=== PATIENT | male | born 1945 | race Caucasian/White ===

== ENCOUNTER 2020-12-06 08:40 | Outpatient (REF) | payer MEDICARE, SELFPAY ==
--- NOTE | ~2020-12-06 | XR_ITS ---
EXAMINATION: XR CHEST CLINICAL INFORMATION: COPD COMPARISON: Chest x-ray 01/08/2020 TECHNIQUE: 2 views of the chest were obtained. FINDINGS: The lungs are hyperinflated and clear of acute process. Heart size and pulmonary vascularity is normal. No gross bony abnormality seen. XR/XR chest 2V IMPRESSION: Hyperinflated lungs without acute process.
[2020-12-06 10:40] LABS: MANUAL DIFF FLAG NO
[2020-12-06 10:52] LABS: Basophils Absolute Auto 0.1 X10*3/uL (0.0-0.2); Basophils Percent Auto 0.8 % (0-2); Eosinophils Absolute Auto 0.3 X10*3/uL (0.0-0.4); Eosinophils Percent Auto 4.8 % (0-4); Hemoglobin 13.5 g/dl (14.0-18.0); Imm Gran Abs Auto 0.01 X10*3/uL (0.00-0.03); Imm Gran Pct Auto 0.2 % (0.0-0.4); Lymphocytes Absolute Auto 1.3 X10*3/uL (1.2-4.9); Lymphocytes Percent Auto 21.5 % (20-40); Mean Corpuscular HGB Conc 33.8 g/dl (31.0-36.0); Mean Corpuscular Hemoglobin 29.7 pg (27.0-33.0); Mean Corpuscular Volume 87.9 fL (80-98); Mean Platelet Volume 10.8 fL (9.4-12.4); Monocytes Absolute Auto 0.7 X10*3/uL (0.1-1.2); Neutrophils Absolute Auto 3.7 X10*3/uL (2.0-8.3); Neutrophils Percent Auto 60.7 % (45-73); Platelet Count 209 X10*3/uL (160-400); Red Blood Count 4.55 X10*6/uL (4.60-5.80); Red Cell Distribution Width 13.2 % (11.0-16.0); White Blood Count 6.1 X10*3/uL (4.8-10.8)
[2020-12-06 11:15] LABS: Alanine Aminotransferase 39 U/L (0-40); Albumin Level 3.8 g/dL (3.5-5.0); Alkaline Phosphatase 82 U/L (39-117); Anion Gap 11 (12-20); Aspartate Amino Transferase 42 U/L (5-37); Bilirubin Direct 0.5 mg/dL (0.0-0.5); Bilirubin Total 1.1 mg/dL (0.0-1.0); Blood Urea Nitrogen 12 mg/dL (9-16); Calcium 9.1 mg/dL (8.4-10.2); Carbon Dioxide 27 mmol/L (22-29); Chloride 102 mmol/L (96-108); Estimated Glomerular Filt Rate > 60; Glucose Random 100 mg/dL (60-115); Potassium 4.3 mmol/L (3.3-5.1); Sodium 136 mmol/L (135-145); Total Protein 6.4 g/dL (6.5-8.0)
[2020-12-06 12:04] LABS: Erythrocyte Sedimentation Rate 9 MM/HR (0-15)
[2020-12-09 21:47] LABS: Alpha 1 Anti-trypsin 110 mg/dL (83-199)
== END 2020-12-06 08:41 | disposition home or self-care (01) ==
LOC: HO.LAB 08:40
PROVIDERS: PCP Internal Medicine; Visit Provider Hospitalist
DX: J44.9 Chronic obstructive pulmonary disease, unspecified (principal); E88.01 Alpha-1-antitrypsin deficiency; Z79.899 Other long term (current) drug therapy
CPT/HCPCS: 36415; 71046; 80048; 80076; 82103; 85025; 85652; 99212

== ENCOUNTER 2021-12-29 13:24 | Outpatient (REF) | payer MEDICARE, SELFPAY ==
--- NOTE | ~2021-12-29 | XR_ITS ---
EXAMINATION: XR CHEST CLINICAL INFORMATION: Centrilobular emphysema COMPARISON: Chest 12/06/2020 TECHNIQUE: 2 views of the chest were obtained. FINDINGS: The lungs are hyperinflated without acute pneumonic process. The heart size and pulmonary vascularity is normal. No gross bony abnormality seen. XR/XR chest 2V IMPRESSION: Unremarkable chest examination. No change from 12/06/2020
[2021-12-29 13:33] LABS: MANUAL DIFF FLAG NO
[2021-12-29 13:40] LABS: Basophils Absolute Auto 0.1 X10*3/uL (0.0-0.2); Basophils Percent Auto 1.1 % (0-2); Eosinophils Absolute Auto 0.4 X10*3/uL (0.0-0.4); Eosinophils Percent Auto 6.2 % (0-4); Hematocrit 40.9 % (42.0-52.0); Hemoglobin 14.1 g/dl (14.0-18.0); Imm Gran Abs Auto 0.02 X10*3/uL (0.00-0.03); Imm Gran Pct Auto 0.3 % (0.0-0.4); Lymphocytes Absolute Auto 1.3 X10*3/uL (1.2-4.9); Lymphocytes Percent Auto 18.6 % (20-40); Mean Corpuscular HGB Conc 34.5 g/dl (31.0-36.0); Mean Corpuscular Hemoglobin 30.1 pg (27.0-33.0); Mean Corpuscular Volume 87.4 fL (80.0-98.0); Mean Platelet Volume 10.2 fL (9.4-12.4); Monocytes Absolute Auto 0.7 X10*3/uL (0.1-1.2); Monocytes Percent Auto 9.3 % (2-11); Neutrophils Absolute Auto 4.6 x10*3/uL (2.0-8.3); Neutrophils Percent Auto 64.5 % (45-73); Platelet Count 212 X10*3/uL (160-400); Red Blood Count 4.68 X10*6/uL (4.60-5.80); Red Cell Distribution Width 13.4 % (11.0-16.0); White Blood Count 7.1 X10*3/uL (4.8-10.8)
[2021-12-29 14:13] LABS: Alanine Aminotransferase 33 U/L (0-40); Albumin Level 4.2 g/dL (3.5-5.0); Alkaline Phosphatase 69 U/L (39-117); Aspartate Amino Transferase 30 U/L (5-37); Bilirubin Direct 0.3 mg/dL (0.0-0.5); Bilirubin Total 1.1 mg/dL (0.0-1.0); Total Protein 6.9 g/dL (6.5-8.0)
[2021-12-29 14:19] LABS: Erythrocyte Sedimentation Rate 12 MM/HR (0-15)
[2022-01-01 14:32] LABS: Alpha 1 Anti-trypsin 98 mg/dL (83-199)
== END 2021-12-29 13:25 | disposition home or self-care (01) ==
LOC: HO.LAB 13:24
PROVIDERS: PCP Internal Medicine; Visit Provider Hospitalist
DX: E88.01 Alpha-1-antitrypsin deficiency (principal); J43.2 Centrilobular emphysema
CPT/HCPCS: 36415; 71046; 80076; 82103; 85025; 85652; 99212

== ENCOUNTER 2022-12-17 07:42 | Outpatient (REF) | payer MEDICARE, SELFPAY ==
--- NOTE | 2022-12-17 09:15 | PFT_ITS ---
INDICATION: COPD. SPIROMETRY: FEV1 to FVC 52% with an FEV1 of 1.79 L, which is 58% predicted and FVC of 3.45 L, which is 91% predicted. No significant response to bronchodilators noted. Maximum voluntary ventilation 57% predicted. LUNG VOLUMES: Total lung capacity 89% predicted. DIFFUSION CAPACITY: DLCO of 64% predicted. COMPARISON: None available at this time. INTERPRETATION: There is an obstructive ventilatory defect consistent with tqsufcjf-ng-tnreyl COPD. No significant response to bronchodilators noted. There is a moderate decrease in maximum voluntary ventilation secondary to the acute deconditioning. Lung volumes are within normal limits. The patient does have a mild diffusion impairment. Clinical correlation warranted. Wolfgang Ann MD MR/MODL / [id number]
== END 2022-12-17 07:43 | disposition home or self-care (01) ==
LOC: HO.RESP 07:42
PROVIDERS: PCP Internal Medicine; Visit Provider Hospitalist
DX: J43.2 Centrilobular emphysema (principal)
CPT/HCPCS: 94060; 94727; 94729

== ENCOUNTER → 2022-12-17 09:15 | Outpatient (BNV) | payer MEDICARE, SELFPAY | PROVIDERS: PCP Internal Medicine; Visit Provider Hospitalist | DX: J44.9 Chronic obstructive pulmonary disease, unspecified (principal) | CPT/HCPCS: 94060; 94727; 94729 ==

== ENCOUNTER 2023-01-16 08:07 | Outpatient (AMB) | payer MEDICARE, SELFPAY ==
--- NOTE | 2023-01-16 08:52 | MHC.OFFVIS ---
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 Overall he has been doing well until recently when he started developing respiratory complaints. After [place] he was exposed to sick contacts and then subsequent started developing stuffiness of the sinuses and chest congestion. She also having a sore throat. He has been having hard time with the breathing and chest tightness. He has been using his nebulizer up to 3 times a day. He has been trying to use olmz-njh-ewakjqf medications with minimal effect. Prior to that he was exercising and doing well. He continues using the Advair and rarely had you to use the short-acting beta agonist. He has plan to leave to [place] in the coming weeks. 01/08/2020 the patient is here for pulmonary follow-up visit. He just got back from [place]. While he was in [place] he did have significant back pain in he ultimately underwent a laminectomy. He is recovering well he is using a cane. His respiratory status has been relatively stable. He does get shortness of breath with activity. Mild in severity. Denies any significant coughing. Denies any exposure to anybody with COVID-19 infection. Today will have him do a spirometry and also check additional blood work to address his alpha-1 deficiency. He should also undergo a chest x-ray. Also to know he did have a sibling that was diagnosed with pulmonary nodules has been evaluated at this time. 12/01/2020 the patient is here for pulmonary follow-up visit. The patient overall has been doing well from a respiratory status. He continues to use the Advair twice a day. He is wondering if he needs to take this medication for ever. He is concerned about the potential adverse effects of taking did chronic medication. I did reassure him that the amount of medication that he is taking minimal. However, he could decrease the dose to 1 inhalation daily. I did provide him with a peak flow that he can monitor his capacity as he decrease this to once a day. He had been using the azithromycin 3 times a week specially during the winter months when he gets more congested. However, recently was diagnosed with colitis in currently taking probiotics. I did recommend that he stop the Zithromax in altogether. In the meantime the patient and his had to come earlier to [place] from [place] due to the fact his granddaughter in a car accident. So they are going through a lot of difficulties with the loss of her family member. Today he will undergo blood work in addition to chest x-ray. 12/29/2021 the patient is here for a pulmonary follow-up visit. Overall he is doing well. he is currently on his baseline. He continues with the Advair as prescribed. He has not required his rescue medication. He is trying to stay active and exercise. We did review his blood work from last year with a normal alpha-1 level. Chest x-ray also appeared to be normal except for some hyperinflation. The patient will go ahead and have additional blood work in a chest x-ray. To note during the last blood work his liver function studies were a little elevated. He was diagnosed with fatty liver. Based on the fact the alpha-1 levels have been well within the normal ranges I doubt that the abnormal liver studies have to do with the alpha-1 antitrypsin Abnormality. 01/16/2023 The patient is here for a pulmonary follow up visit. Does have dyspnea on exertion. Moderate in severity. Has a hard time to be in the humidity. Has been also having allergy symptoms with elevated eosinophils. Partially responds to Advair. He had PFTs with moderate to severe COPD and a moderate diffusion capacity. Planning a trip to [place] around 8,000 feet above see level. We will optimize his respiratory inhaler to Trelegy 100. He will undergo a CXR today. His alpha 1 levels had been stable before, therefore, we will defer this time. [facility] Medical History (Updated 12/06/20 @ 12:47 by Wolfgang Ann MD) Gurne-1-licggchdrrb deficiency Colitis COPD (chronic obstructive pulmonary disease) Social History (Updated 12/06/20 @ 09:02 by KOMAL Odom) Patient Tobacco Use Status: Former Tobacco user Tobacco use type: Cigarette Years Smoked: 19 years Review of Systems Const Denies night sweats ENT Denies change in voice, Denies lip swelling, Denies mouth pain, Reports nasal congestion, Reports nasal discharge and Denies tongue swelling Card Denies chest pain and Reports dyspnea on exertion Resp Reports cough, Reports dyspnea on exertion and Reports wheezing GI Denies abdominal pain Musc Denies no additional complaints Neuro Denies Neuro-related abnormal movements Psych Denies no additional complaints Sagar/Lymph Denies easy bleeding and Denies lymphadenopathy Aller/Immun Denies lip swelling, Denies tongue swelling and Reports wheezing Physical Exam Vital Signs: Last Vital Signs Pulse 61 01/16/23 08:53 BP 138/70 01/16/23 08:53 Pulse Ox 96 01/16/23 08:53 Oxygen Delivery Method Room Air 01/16/23 08:53 BMI result Body Mass Index 24.4 Const General: alert Neck Neck: Yes normal visual inspection, Yes full ROM and Yes no lymphadenopathy Chest Chest palpation & inspection: normal inspection of the chest Resp Auscultation: wheezes and diminished lung sounds Cardio Rate: regular rate Rhythm: regular rhythm Heart sounds: S1 normal heart sound present and S2 normal heart sound present GI Palpation (GI): Soft to palpation and nontender Auscultation: normal bowel sounds Skin General skin exam: rashes and/or lesions noted Assessment & Plan Assessment & Plan (1) Joaol-9-ygtqxlounrx deficiency: Code(s): E88.01 - Ydtob-0-oyfvrcynnlo deficiency (2) COPD (chronic obstructive pulmonary disease): Code(s): J44.9 - Chronic obstructive pulmonary disease, unspecified Qualifiers: COPD type: emphysema Emphysema type: centrilobular Qualified Code(s): J43.2 - Centrilobular emphysema Plan chest x-ray stop Advair strat Trelegy MARIAM as needed F/U 1 year Orders: Orders XR chest 2V Today E88.01 - Jhqck-8-yuwuydqcuqj deficiency, J44.9 - Chronic obstructive pulmonary disease, unspecified Medications: New yvqljynicsl-pyppyigsn-ctbdoima 100-62.5-25 mcg (Trelegy Ellipta) 1 inh inhalation DAILY 30 days 60 ea 11RF J44.9 - Chronic obstructive pulmonary disease, unspecified Coding Level of Care Code Est Pt Level 4 (23238) Diagnoses Zujnu-7-muevcgqxfno deficiency E88.01 COPD (chronic obstructive pulmonary disease) J43.2 COPD type: emphysema Emphysema type: centrilobular Time Spent (min) 19
[2023-01-16 08:53] VITALS: BP 138/70; PULSE 61; O2SAT 96; BMI 24.4
== END 2023-01-16 09:29 | disposition home or self-care (01) ==
PROVIDERS: PCP Internal Medicine; Visit Provider Hospitalist
DX: E88.01 Alpha-1-antitrypsin deficiency (principal); J43.2 Centrilobular emphysema
CPT/HCPCS: 99214

== ENCOUNTER 2023-01-16 08:07 | Outpatient (REF) | payer MEDICARE, SELFPAY ==
--- NOTE | ~2023-01-16 | XR_ITS ---
EXAMINATION: XR CHEST CLINICAL INFORMATION: COPD COMPARISON: None available. TECHNIQUE: 2 views of the chest were obtained. FINDINGS: The lungs are hyperinflated but clear. The heart size and pulmonary vascularity is normal. No gross bony abnormality seen. XR/XR chest 2V IMPRESSION: Unremarkable chest examination.
== END 2023-01-16 08:08 | disposition home or self-care (01) ==
LOC: HO.XRAY 08:07
PROVIDERS: PCP Internal Medicine; Visit Provider Hospitalist
DX: J43.2 Centrilobular emphysema (principal); E88.01 Alpha-1-antitrypsin deficiency; Z87.891 Personal history of nicotine dependence
CPT/HCPCS: 71046; 99212

== ENCOUNTER 2024-01-27 09:06 | Outpatient (REF) | payer MEDICARE, SELFPAY ==
--- NOTE | ~2024-01-27 | XR_ITS ---
EXAMINATION: XR CHEST CLINICAL INFORMATION: Cough. COMPARISON: Chest radiograph 01/16/2023. TECHNIQUE: 2 views of the chest were obtained. FINDINGS: No focal consolidation, pleural effusion or pneumothorax. Slightly increased interstitial markings, not significantly changed. Normal appearance of the cardiomediastinal silhouette. No acute osseous findings. XR/XR chest 2V IMPRESSION: Chronic minimally increased interstitial markings, indeterminate. Further characterization could be obtained with a high-resolution chest CT as clinically appropriate if an interstitial lung abnormality is clinically suspected. No dense consolidation or pleural effusion. Electronically signed by: Dang Dueñas MD 02/20/2024 12:08 PM EDT
== END 2024-01-27 09:07 | disposition home or self-care (01) ==
LOC: HO.XRAY 09:06
PROVIDERS: PCP Internal Medicine; Visit Provider Hospitalist
DX: R05.3 Chronic cough (principal); E88.01 Alpha-1-antitrypsin deficiency; J43.2 Centrilobular emphysema; J40 Bronchitis, not specified as acute or chronic
CPT/HCPCS: 71046; 99212

== ENCOUNTER 2024-01-27 09:06 | Outpatient (AMB) | payer MEDICARE, SELFPAY ==
[2024-01-27 09:16] VITALS: BP 128/70; PULSE 75; O2SAT 97; BMI 24.0
--- NOTE | 2024-01-27 09:16 | A.OFFVIS_ITS ---
Vital Signs 01/27/24 09:16 Height 5 ft 11 in Weight 172 lb BMI 24.0 BP 128/70 Blood Pressure Location Lt brachial Position Sitting Pulse 75 Pulse Source Pulse Oximeter Pulse Oximetry (%) 97 Oxygen Delivery Method Room Air Intake Visit Reasons: COPD follow-up Allergies No Known Allergies Allergy (Verified 01/27/24 09:18) HPI Comments Details: The patient is a 78-year-old gentleman with a known history of alpha-1 antitrypsin deficiency, COPD. Overall he has been doing well until recently when he started developing respiratory complaints. After [place] he was exposed to sick contacts and then subsequent started developing stuffiness of the sinuses and chest congestion. She also having a sore throat. He has been having hard time with the breathing and chest tightness. He has been using his nebulizer up to 3 times a day. He has been trying to use cank-ouu-bhrhoue medications with minimal effect. Prior to that he was exercising and doing well. He continues using the Advair and rarely had you to use the short-acting beta agonist. He has plan to leave to [place] in the coming weeks. 01/16/2023 The patient is here for a pulmonary follow up visit. Does have dyspnea on exertion. Moderate in severity. Has a hard time to be in the humidity. Has been also having allergy symptoms with elevated eosinophils. Partially responds to Advair. He had PFTs with moderate to severe COPD and a moderate diffusion capacity. Planning a trip to [place] around 8,000 feet above see level. We will optimize his respiratory inhaler to Trelegy 100. He will undergo a CXR today. His alpha 1 levels had been stable before, therefore, we will defer this time. 01/27/2024 the patient is here for a pulmonary follow-up visit. He continues to have dyspnea on exertion ptmv-hk-psdunwls severity. He does have issues with humidity. He also has elevations in the eosinophils likely component of allergies specially when he transitions from [place] to [place]. He has been on the Advair. We had requested that he can try some Trelegy instead which may be helpful in decreasing some of the congestion and dyspnea symptoms. Will go ahead and send a prescription to the pharmacy. In the meantime he did have a chest x-ray during the last visit with straightening no acute disease. Lately he developed a cough after visiting [place]. He has been having some increased chest congestion greenish in color. Colb-qi-gygvynhc severity. Initially was getting a little better with the now she is persistent. He is on somewhat congested on the right lung with some rhonchi although I do not hear any crackles. Will be reasonable to give a course of doxycycline to treat him for a postviral bacterial infection. Specially with his underlying COPD. No need for prednisone right now. He will have a chest x-ray prior to leaving. If the x- ray demonstrates any abnormalities I will let him know. [facility] Medical History (Updated 01/27/24 @ 19:53 by Wolfgang Ann MD) Cough Colitis COPD (chronic obstructive pulmonary disease) Trpak-6-dnflqmxwewg deficiency Social History (Updated 12/06/20 @ 09:02 by KOMAL Odom) Patient Tobacco Use Status: Former Tobacco user Tobacco use type: Cigarette Years Smoked: 19 years Review of Systems Const Denies night sweats ENT Denies change in voice, Denies lip swelling, Denies mouth pain, Reports nasal congestion, Reports nasal discharge and Denies tongue swelling Card Denies chest pain and Reports dyspnea on exertion Resp Reports cough, Reports dyspnea on exertion and Reports wheezing GI Denies abdominal pain Musc Denies no additional complaints Neuro Denies Neuro-related abnormal movements Psych Denies no additional complaints Sagar/Lymph Denies easy bleeding and Denies lymphadenopathy Aller/Immun Denies lip swelling, Denies tongue swelling and Reports wheezing Physical Exam Vital Signs: Last Vital Signs Pulse 75 01/27/24 09:16 BP 128/70 01/27/24 09:16 Pulse Ox 97 01/27/24 09:16 Oxygen Delivery Method Room Air 01/27/24 09:16 BMI result Body Mass Index 24.0 Const General: alert Neck Neck: Yes normal visual inspection, Yes full ROM and Yes no lymphadenopathy Chest Chest palpation & inspection: normal inspection of the chest Resp Auscultation: no wheezes and diminished lung sounds Cardio Rate: regular rate Rhythm: regular rhythm Heart sounds: S1 normal heart sound present and S2 normal heart sound present GI Palpation (GI): Soft to palpation and nontender Auscultation: normal bowel sounds Skin General skin exam: rashes and/or lesions noted Assessment & Plan Assessment & Plan (1) Ayutb-9-vcnbavttkza deficiency: Code(s): E88.01 - Onsbd-8-zahnkjxrayz deficiency Category: Medical (2) COPD (chronic obstructive pulmonary disease): Code(s): J44.9 - Chronic obstructive pulmonary disease, unspecified Category: Medical Qualifiers: COPD type: emphysema Emphysema type: centrilobular Qualified Code(s): J43.2 - Centrilobular emphysema (3) Cough: Code(s): R05.9 - Cough, unspecified Category: Medical Qualifiers: Cough type: chronic Qualified Code(s): R05.3 - Chronic cough (4) Bronchitis: Code(s): J40 - Bronchitis, not specified as acute or chronic Category: Medical Plan chest x-ray stop Advair strat Trelegy MARIAM as needed start Doxycycline F/U 1 year Orders: Orders XR chest 2V Today R05.9 - Cough, unspecified Medications: New doxycycline monohydrate 100 mg PO BID 28 tabs 0RF 14 days hkvhvfuhtdb-kifjbyvqy-qncsbxcu 200-62.5-25 mcg (Trelegy Ellipta) 1 inh inhalation DAILY 60 ea 12RF 30 days Coding Level of Care Code Est Pt Level 4 (65199) Diagnoses Fgkzy-0-lzckfjcuudx deficiency E88.01 Centrilobular emphysema J43.2 COPD type: emphysema Emphysema type: centrilobular Chronic cough R05.3 Cough type: chronic Bronchitis J40 Time Spent (min) 17
== END 2024-01-27 09:39 | disposition home or self-care (01) ==
PROVIDERS: PCP Internal Medicine; Visit Provider Hospitalist
DX: E88.01 Alpha-1-antitrypsin deficiency (principal); J43.2 Centrilobular emphysema; R05.3 Chronic cough; J40 Bronchitis, not specified as acute or chronic
CPT/HCPCS: 99214

== ENCOUNTER 2025-01-11 08:36 | Outpatient (AMB) | payer MEDICARE, SELFPAY ==
[2025-01-11 08:48] VITALS: BP 128/58; PULSE 82; O2SAT 98; BMI 22.3
--- NOTE | 2025-01-11 08:48 | MHC.OFFVIS ---
Vital Signs 01/11/25 08:48 Height 5 ft 11 in Weight 160 lb BMI 22.3 BP 128/58 L Blood Pressure Location Lt brachial Position Sitting Pulse 82 Pulse Source Pulse Oximeter Pulse Oximetry (%) 98 Oxygen Delivery Method Room Air Intake Visit Reasons: copd Allergies No Known Allergies Allergy (Verified 01/11/25 08:54) HPI Comments Details: The patient is a 79-year-old gentleman with a known history of alpha-1 antitrypsin deficiency, COPD. Overall he has been doing well until recently when he started developing respiratory complaints. After [place] he was exposed to sick contacts and then subsequent started developing stuffiness of the sinuses and chest congestion. She also having a sore throat. He has been having hard time with the breathing and chest tightness. He has been using his nebulizer up to 3 times a day. He has been trying to use ocor-gwk-nficunq medications with minimal effect. Prior to that he was exercising and doing well. He continues using the Advair and rarely had you to use the short-acting beta agonist. He has plan to leave to [place] in the coming weeks. 01/16/2023 The patient is here for a pulmonary follow up visit. Does have dyspnea on exertion. Moderate in severity. Has a hard time to be in the humidity. Has been also having allergy symptoms with elevated eosinophils. Partially responds to Advair. He had PFTs with moderate to severe COPD and a moderate diffusion capacity. Planning a trip to [place] around 8,000 feet above see level. We will optimize his respiratory inhaler to Trelegy 100. He will undergo a CXR today. His alpha 1 levels had been stable before, therefore, we will defer this time. 01/27/2024 the patient is here for a pulmonary follow-up visit. He continues to have dyspnea on exertion dgiv-qv-bigmcbqv severity. He does have issues with humidity. He also has elevations in the eosinophils likely component of allergies specially when he transitions from [place] to [place]. He has been on the Advair. We had requested that he can try some Trelegy instead which may be helpful in decreasing some of the congestion and dyspnea symptoms. Will go ahead and send a prescription to the pharmacy. In the meantime he did have a chest x-ray during the last visit with straightening no acute disease. Lately he developed a cough after visiting [place]. He has been having some increased chest congestion greenish in color. Pnkt-al-jhawivla severity. Initially was getting a little better with the now she is persistent. He is on somewhat congested on the right lung with some rhonchi although I do not hear any crackles. Will be reasonable to give a course of doxycycline to treat him for a postviral bacterial infection. Specially with his underlying COPD. No need for prednisone right now. He will have a chest x-ray prior to leaving. If the x-ray demonstrates any abnormalities I will let him know. 01/11/2025 the patient is here for pulmonary follow-up visit. Overall he is doing okay. 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 He had a stent placed and ultimately had postoperative complications with low blood pressures and needing ICU level of care. The patient did have a heart attack. He has cares mainly right now in [place]. He is going back in a month and he is going to see the surgeon and hopefully also Cardiology. Prior to having the stent placement he did have a preoperative evaluation including a stress test. I do not have any other results. He has lost some weight and he has also has decreased appetite will likely sequela from being ill. But he needs to make sure to have imaging studies and make sure that he has any recent x-rays or CAT scans done in [place]. I will hold off on doing any workup right now since he is going back to [place] in a few weeks and be seen his doctors then. From a alpha-1 standpoint his levels have been stable and I did reassure him this is not an issue for him to worry about. He does not need augmentation therapy. He continues use the Trelegy with good effect. He does get muscle spasms. Although he needs to stay hydrated and watch her his electrolytes. He will follow-up in a year's time if he has any issues prior to this he will call for further recommendations. [facility] Medical History (Updated 01/27/24 @ 19:53 by Wolfgang Ann MD) Cough Colitis COPD (chronic obstructive pulmonary disease) Kfztn-9-bhezsvmgrgk deficiency Social History (Updated 12/06/20 @ 09:02 by KOMAL Odom) Patient Tobacco Use Status: Former Tobacco user Tobacco use type: Cigarette Years Smoked: 19 years Review of Systems Const Denies night sweats ENT Denies change in voice, Denies lip swelling, Denies mouth pain, Reports nasal congestion, Reports nasal discharge and Denies tongue swelling Card Reports as per HPI, Denies chest pain and Reports dyspnea on exertion Resp Reports cough, Reports dyspnea on exertion and Reports wheezing GI Denies abdominal pain Musc Denies no additional complaints Neuro Denies Neuro-related abnormal movements Psych Denies no additional complaints Sagar/Lymph Denies easy bleeding and Denies lymphadenopathy Aller/Immun Denies lip swelling, Denies tongue swelling and Reports wheezing Physical Exam Vital Signs: Last Vital Signs Pulse 82 01/11/25 08:48 BP 128/58 L 01/11/25 08:48 Pulse Ox 98 01/11/25 08:48 Oxygen Delivery Method Room Air 01/11/25 08:48 BMI result Body Mass Index 22.3 Const General: alert Neck Neck: Yes normal visual inspection, Yes full ROM and Yes no lymphadenopathy Chest Chest palpation & inspection: normal inspection of the chest Resp Auscultation: no wheezes and diminished lung sounds Cardio Rate: regular rate Rhythm: regular rhythm Heart sounds: S1 normal heart sound present and S2 normal heart sound present GI Palpation (GI): Soft to palpation and nontender Auscultation: normal bowel sounds Skin General skin exam: rashes and/or lesions noted Assessment & Plan Assessment & Plan (1) Vxzur-4-xubdmbgdehm deficiency: Code(s): E88.01 - Txtns-6-qbxanjjbwnt deficiency Category: Medical (2) COPD (chronic obstructive pulmonary disease): Code(s): J44.9 - Chronic obstructive pulmonary disease, unspecified Category: Medical Qualifiers: COPD type: emphysema Emphysema type: centrilobular Qualified Code(s): J43.2 - Centrilobular emphysema (3) Cough: Code(s): R05.9 - Cough, unspecified Category: Medical Qualifiers: Cough type: chronic Qualified Code(s): R05.3 - Chronic cough (4) Bronchitis: Code(s): J40 - Bronchitis, not specified as acute or chronic Category: Medical Plan chest x-ray continue Trelegy MARIAM as needed F/U 1 year Medications: Changed From albuterol sulfate 90 mcg/actuation 2 puffs inhalation Q6H PRN 3 ea 2RF for wheezing To albuterol sulfate 90 mcg/actuation 2 puffs inhalation Q6H PRN 1 ea 3RF for wheezing 90 days Refilled oidkndwlncg-esxcxfhvl-uxxagqal 200-62.5-25 mcg (Trelegy Ellipta) 1 inh inhalation DAILY 3 ea 3RF 90 days Coding Level of Care Code Est Pt Level 4 (95970) Diagnoses Ftalq-2-rmalppbguwf deficiency E88.01 Centrilobular emphysema J43.2 COPD type: emphysema Emphysema type: centrilobular Chronic cough R05.3 Cough type: chronic Bronchitis J40 Time Spent (min) 16
--- OUTSIDE RECORDS SUMMARY | 2025-01-11 08:58 | XMS_ITS | Clinical Summary ---
Author Organization [facility] ity Address [address] [place] [address] Care Team Providers Care Rn Ed Name Role Phone Kingsley Hoff MD Primary Care Provider [phone] Medications mesalamine (APRISO) 0.375 gram 24 hr capsuleIndicati ons:Ulcerative colitis ([facility] [place]24, [facility] [place] V28) Take 4 capsules (1.5 g total) by mouth 1 (one) time each day. 120 capsule 3 11/13/2024 Active Surgical History Surgery Date Site/Laterality Comments TOTAL KNEE ARTHROPLASTY 06/2011 Right PROCEDURE: HISTORICAL TOTAL KNEE REPLACE OTHER SURGICAL HISTORY 10/2015 PROCEDURE: HISTORY OTHER; COMMENT: Hernia (DIMAS) repair KNEE SURGERY 1974 PROCEDURE: HISTORICAL KNEE SURGERY OTHER SURGICAL HISTORY 1965 PROCEDURE: HISTORY OTHER; COMMENT: tailbone cyst removed JOINT REPLACEMENT PROCEDURE:JOINT REPLACEMENT BACK SURGERY PROCEDURE:BACK SURGERY HERNIA REPAIR PROCEDURE:HERNIA REPAIR SHOULDER SURGERY PROCEDURE:SHOULDER SURGERY Medical History Medical History Date Comments Chronic obstructive pulmonar y disease (COPD) ([facility] [place] V24, [facility] [place] V28) 12/03/2017 DX:Chronic obstructi ve pulmonary disease (COPD) ([facility]) Allergic rhinitis 12/10/2016 DX:Allergic rh initis Efort-3-kmykljccrpr deficien cy ([facility] [place] V24, [facility] [place] V28) 11/02/2016 DX:Hdchj-7-kbjkvzxnkdm defic iency ([facility]) Asthma 04/08/2017 DX:Asthma Bronchiectasis ([facility] [place] V24, [facility] [place] V28) 11/02/2016 DX:Bronchiectasis ([facility]) History of total knee replacement 04/14/2017 DX:History of total knee replacement Asthma DX:Asthma Diabetes mellitus ([facility] V 24, [facility] V28) DX:Diabetes mellitus ([facility]) Psoriasis DX:Psoriasis Family History Medical History Relation Name Comments Emphysema Father Emphysema Mother Relation Name Status Comments Father Mother Social History Tobacco Use Types Packs/Day Years Used Date Smoking Tobacco: Never Assessed Cigarettes Sex and Gender Information Value Date Recorded Sex Assigned at Not on file Legal Sex Male 3:16 AM EST Gender Identity Not on file Sexual Orientation Not on file Obstetrics History Last Filed Vital Signs Vital Sign Reading Time Taken Comments Blood Pressure - - Pulse - - Temperature - - Respiratory Rate - - Oxygen Saturation - - Inhaled Oxygen Concentration - - Weight 82.1 kg (181 lb) 11/14/2021 1:09 PM EDT Height 180.3 cm (5' 11 ) 11/14/2021 1:09 PM EDT Body Mass Index 25.24 11/14/2021 1:09 PM EDT Plan of Treatment Upcoming Encounters Date Type Department Care Team (Late st Contact Info) Description 01/20/2025 10:10 AM EDT Office Visit Gastroenterology - [address] [place] [id number] Jonna Gary PA [address] [place] [address] Health Maintenance Due Date Last Done Comments DTaP,Tdap,and Td Vaccines (1 - Tdap) 1964 Hepatitis A Vaccines (1 of 2 - Risk 2-dose series) 1963 Pneumococcal Vaccine: 50+ Ye ars (1 of 2 - PCV) 1963 Zoster Vaccines (1 of 2) 1994 Hepatitis B Vaccines (1 of 3 - Risk 3-dose series) 2004 RSV Immunization Adult Patie nts (1 - 1-dose 75+ series) 2019 Cholesterol Screening (Lipid Panel) 05/13/2022 Falls Risk Assessment 05/13/2022 Medicare Annual Wellness Visit 05/13/2022 Social Influencers of Health Screening 05/13/2022 COVID-19 Vaccine ( - 2023-2 5 season) 2024 Depression Screening 06/10/2024 Influenza Vaccine (#1) 2025 HIB Vaccines Aged Out No longer eligi ble based on patient's age to complete this topic HPV Vaccines Aged Out No longer eligi ble based on patient's age to complete this topic IPV Vaccines Aged Out No longer eligi ble based on patient's age to complete this topic MMR Vaccines Aged Out No longer eligi ble based on patient's age to complete this topic Meningococcal ACWY Vaccine Aged Out N o longer eligible based on patient's age to complete this topic Meningococcal B Vaccine Aged Out No l onger eligible based on patient's age to complete this topic RSV Immunization Patients Un ian 20 months Aged Out No longer eligible b ased on patient's age to complete this topic Varicella Vaccines Aged Out No longer eligible based on patient's age to complete this topic Insurance [employer] MEDICARE Care Teams Rn Ed Relationship Specialty Start Date End Date Kingsley Hoff MD [address] [facility] [address] [place], [place] PCP - General Internal Medicine 04/29/17
--- OUTSIDE RECORDS SUMMARY | 2025-01-11 08:58 | XMS_ITS | Clinical Summary ---
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 0 10/23/2021 Active mesalamine (APRISO) 0.375 g 24 hr capsule Take 1.5 g by mouth daily. 0 10/12/2021 Active amoxicillin (AMOXIL) 500 MG tablet TAKE 4 TABLETS BY MOUTH 1 HOUR BEFORE DENTAL APPOINTMENT 20 tablet 3 12/12/2021 Active Social History Tobacco Use Types Packs/Day Years Used Date Smoking Tobacco: Never Assessed Sex and Gender Information Value Date Recorded Sex Assigned at Not on file Gender Identity Not on file Sexual Orientation Not on file Job Start Date Occupation Industry Not on file Not on file Not on file Last Filed Vital Signs Vital Sign Reading Time Taken Comments Blood Pressure - - Pulse - - Temperature - - Respiratory Rate - - Oxygen Saturation - - Inhaled Oxygen Concentration - - Weight 82.1 kg (181 lb) 11/14/2021 1:09 PM EDT Height 180.3 cm (5' 11 ) 11/14/2021 1:09 PM EDT Body Mass Index 25.24 11/14/2021 1:09 PM EDT Plan of Treatment Health Maintenance Due Date Last Done Comments Depression Screening 1956 Preventative Health Evaluation 1962 DTap / Tdap / Td (1 - Tdap) 1963 Shingrix-Zoster Vaccine (1 o f 2) 1994 Fall Risk Assessment 2009 Pneumococcal Vaccine (1 of 1 - PCV) 2009 RSV Adult > 60+ Yrs or (1 - 1-dose 75+ series) 2019 COVID-19 Vaccine (3 - 2023-2 5 season) 2024 08/16/2020, 07/26/2020 Influenza Vaccine (#1) 2025 03/29/2021 Hepatitis B Vaccines Aged Out No long er eligible based on patient's age to complete this topic RSV Ped < 20 months Aged Out No longe r eligible based on patient's age to complete this topic Care Teams Chicken Dresser Relationship Specialty Start Date End Date Kingsley Hoff MD [address] [facility] [place] [id number] PCP - General Internal Medicine 11/14/21
== END 2025-01-11 09:47 | disposition home or self-care (01) ==
PROVIDERS: PCP Internal Medicine; Visit Provider Hospitalist
DX: E88.01 Alpha-1-antitrypsin deficiency (principal); J43.2 Centrilobular emphysema; R05.3 Chronic cough; J40 Bronchitis, not specified as acute or chronic
CPT/HCPCS: 99214

== ENCOUNTER → 2025-01-11 08:36 | Outpatient (BNVA) | payer MEDICARE, SELFPAY | PROVIDERS: PCP Internal Medicine; Visit Provider Hospitalist | DX: J43.2 Centrilobular emphysema (principal); E88.01 Alpha-1-antitrypsin deficiency; J40 Bronchitis, not specified as acute or chronic; R05.3 Chronic cough | CPT/HCPCS: 99212 ==